=== PATIENT | female | born 1960 | race Caucasian/White ===

== ENCOUNTER 2019-12-08 04:14 | Inpatient (IN) | payer OTHER, SELFPAY ==
[~2019-12-08] VITALS: Ht 182.9 cm; Wt 60.9 kg
[2019-12-08 04:14] VITALS: BP_SYST 137
--- NOTE | 2019-12-08 05:35 | NUR ---
Patient to ER bed 5 to gown for evaluation. Side rails up.
--- NOTE | 2019-12-08 05:39 | NUR ---
XRAY AT BEDSIDE.
--- NOTE | 2019-12-08 05:40 | NUR ---
PT C/O OF CHEST PAIN 12/31, INCREASING SOB, LOSS OF APPETITE, NAUSEA, VOMITING, AND DIARRHEA SINCE WEDNESDAY. PT HAS HAD A HEADACHE SINCE WEDNESDAY. PT HAS NOT BEEN ABLE TO KEEP ANYTHING DOWN. PT VISITED HER PCP YESTERDAY AND HAD PRESCRIPTION FOR COVID SWAB AND XRAY. PT WAS GIVEN ZPAK YESTERDAY.
--- NOTE | 2019-12-08 06:20 | NUR ---
# 20 gauge angiocath placed to RAC. Use of asceptic technique. Opsite placed over site. Blood return noted. Blood,BLOOD CULTURES, LACTIC for lab drawn from site. Flushed with 10 cc of normal saline. No evidence of infiltration noted. Patient tolerated well.
--- NOTE | 2019-12-08 06:23 | NUR ---
ER Dr. HAGAN at bedside examining patient.
--- NOTE | 2019-12-08 06:25 | NUR ---
COVID SWAB COLLECTED AND SENT TO LAB.
--- NOTE | 2019-12-08 06:30 | NUR ---
Medication reconciliation completed with information provided by PATIENT. Any prior medication reconciliation on file was reviewed and corrected.
--- NOTE | 2019-12-08 06:30 | NUR ---
Patient's code status is FULL CODE paperwork completed and placed in chart.
--- NOTE | 2019-12-08 06:33 | NUR ---
PT USING BEDSIDE COMMODE TO URINATE.
[2019-12-08 06:37] LABS: BASOPHILS % (AUTO) 0.2 % (0.0-2.0); EOSINOPHILS % (AUTO) 0.2 % (0.0-4.0); HEMATOCRIT 36.7 % (36-48); HEMOGLOBIN 12.7 g/dL (12.0-16.0); LYMPHOCYTES # (AUTO) 1.1 K/uL (1.0-5.5); LYMPHOCYTES % (AUTO) 12.7 % (20.5-51.5); MEAN CORPUSCULAR HEMOGLOBIN 34 pg (27-31); MEAN CORPUSCULAR HGB CONC 35 % (32-36); MEAN CORPUSCULAR VOLUME 99 fL (79.0-98.0); MONOCYTES % (AUTO) 11.4 % (1.7-9.3); NEUTROPHILS # (AUTO) 6.3 K/uL (1.8-7.7); NEUTROPHILS % (AUTO) 75.5 % (40.0-70.0); PLATELET COUNT (AUTO) 237 K/uL (130-430); WHITE BLOOD COUNT (AUTO) 8.4 K/uL (4.8-10.8)
[2019-12-08 06:54] LABS: CALCIUM 8.5 mg/dL (8.4-11.0); CREATININE 0.7 mg/dL (0.55-1.30); POTASSIUM 3.4 mmol/L (3.5-5.1)
[2019-12-08 06:55] LABS: BILIRUBIN,URINE NEGATIVE (NEGATIVE); BLOOD, URINE 1+ (NEGATIVE); CLARITY/URINE CLEAR (CLEAR); COLOR,URINE YELLOW (YELLOW); GLUCOSE,URINE NEGATIVE (NEGATIVE); KETONES,URINE 1+ (NEGATIVE); LEUKOCYTE ESTERASE ,URINE NEGATIVE (NEGATIVE); NITRITE, URINE NEGATIVE (NEGATIVE); PROTEIN URINE NEGATIVE (NEGATIVE); UROBILINOGEN,URINE 0.2 (0.2-1.0)
[2019-12-08 06:58] LABS: ALBUMIN 3.4 g/dL (3.4-4.8); C-REACTIVE PROTEIN QUANT 3.2 mg/dL (0-0.5); TOTAL BILIRUBIN 0.7 mg/dL (0.0-1.0)
[2019-12-08 07:00] LABS: INR 1.1 (0.8-1.2); PROTHROMBIN TIME 11.1 SECS (9.5-12.5)
[2019-12-08 07:11] LABS: BACTERIA,URINE FEW /HPF (None Seen); MUCUS,URINE 1+ /LPF (None Seen); WBC,URINE 0-3 /HPF (0-3)
--- NOTE | 2019-12-08 07:12 | NUR ---
report given to JAVIER Molina for continuation of care.
--- NOTE | 2019-12-08 07:13 | NUR ---
Critical result relayed to Dr. Herrmann, Chloride 84
[2019-12-08 07:15] LABS: BARBITURATE, URINE NEGATIVE (NEG <=200); BENZODIAZEPINE, URINE NEGATIVE (NEG <=150); CANNABINOID, URINE NEGATIVE (NEG <=50); COCAINE, URINE NEGATIVE (NEG <=150); METHAMPHETAMINES SCREEN,URINE NEGATIVE (NEG <=500); OPIATE, URINE NEGATIVE (NEG <=100); PHENCYCLIDINE SCREEN,URINE NEGATIVE (NEG <=25); UR TRICYCLIC ANTIDEPRESSANTS NEGATIVE (NEG <=300); URINE AMPHETAMINE NEGATIVE (NEG <=500); URINE METHADONE NEGATIVE (NEG <=200); URINE OXYCODONE SCREEN NEGATIVE (NEG <=100); URINE PROPOXYPHENE SCREEN NEGATIVE (NEG <=300)
[2019-12-08] MEDS ORDERED: ENOXAPARIN SODIUM 60 MG/0.6 ML SYRINGE SUBCUT ONE (07:15)
[2019-12-08] MEDS ORDERED: ASPIRIN 325 MG TABLET PO ONE (07:15)
--- NOTE | 2019-12-08 08:16 | NUR ---
Admit orders received from Dr. Emery, awaiting bed placement. Requested hospital bed from [facility]
--- NOTE | 2019-12-08 08:16 | NUR ---
Belongings list completed
[2019-12-08] MEDS ORDERED: ASPIRIN 325 MG TABLET (ECOTRIN) PO ONE (10:08)
[2019-12-08] MEDS ORDERED: ENOXAPARIN SODIUM 80 MG/0.8 ML SYRINGE ONE (10:09)
--- NOTE | 2019-12-08 11:23 | NUR ---
Pt reports nausea, called Dr. Emery, v/o received for Zofran IV.
[2019-12-08] MEDS ORDERED: FUROSEMIDE 40 MG/4 ML VIAL IVP ONE (12:00)
[2019-12-08] MEDS: cefTRIAXone 1 GM in D5W 50 ML IV SCH (12:41)
[2019-12-08] MEDS: ONDANSETRON HCL 4 MG/2 ML VIAL IM PRN ×2 (12:41→19:32)
[2019-12-08] MEDS ORDERED: cefTRIAXone 1 GM VIAL ONE (12:42)
[2019-12-08] MEDS ORDERED: AZITHROMYCIN 500 MG/VIAL (ZITHROMAX) IV ONE (12:43)
[2019-12-08] MEDS: AZITHROMYCIN 500 MG in NS 250 ML IV SCH (14:25)
--- NOTE | 2019-12-08 19:11 | NUR ---
Care of patient endorsed to JAVIER Gunter. Currently resting in bed, no distress noted.
--- NOTE | 2019-12-08 19:25 | NUR ---
Patient states " can't eat dinner, nausea."
--- NOTE | 2019-12-08 19:31 | NUR ---
Given Zofran 4 mg IV as order from Dr. Emery prn med.
--- NOTE | 2019-12-08 19:32 | NUR ---
Provided ice chips as patient request.
--- NOTE | 2019-12-08 19:46 | NUR ---
Empty bedside commode and change new one.
--- NOTE | 2019-12-08 20:22 | NUR ---
Given crackers as request.
--- NOTE | 2019-12-08 22:20 | NUR ---
Patient resting quietly. No acute distress noted. Vital signs within normal range.
--- NOTE | 2019-12-09 00:37 | NUR ---
Patient is asleep on bed, vss. No breathing distress or SOB.
--- NOTE | 2019-12-09 03:46 | NUR ---
Patient is asleep. No acute distress noted. Vital signs within normal range.
--- NOTE | 2019-12-09 06:10 | NUR ---
Change a new bedside commode.
--- NOTE | 2019-12-09 07:25 | NUR ---
Report received from Lyric HERRERA. Pt is [id number]. Currently waiting for a tele PUI.
[2019-12-09] MEDS ORDERED: ONDANSETRON HCL 4 MG/2 ML VIAL IM PRN (09:30)
[2019-12-09] MEDS ORDERED: ACETAMINOPHEN 325 MG TABLET PO PRN (09:30)
[2019-12-09] MEDS ORDERED: ALBUTEROL MDI INHALATION 8 GM INH INH PRN (09:30)
[2019-12-09] MEDS ORDERED: ALBUTEROL SULFATE 0.083% 2.5 MG/3 ML VIAL.NEB INH PRN (09:45)
[2019-12-09] MEDS ORDERED: ASCORBIC ACID 500 MG TABLET PO ONE (10:00)
[2019-12-09] MEDS ORDERED: CHOLECALCIFEROL (VITAMIN D3) 2,000 UNIT TABLET PO ONE (10:00)
--- NOTE | 2019-12-09 10:15 | NUR ---
am meds given.
[2019-12-09] MEDS: DECADRON 4 MG TABLET PO SCH (10:54)
[2019-12-09] MEDS: cefTRIAXone 1 GM in D5W 50 ML IV SCH (11:00)
[2019-12-09] MEDS ORDERED: ENOXAPARIN SODIUM 80 MG/0.8 ML SYRINGE SUBCUT ONE (11:00)
--- NOTE | 2019-12-09 11:20 | NUR ---
Dr. Stratton at the bedside w/ the pt.
--- NOTE | 2019-12-09 11:40 | NUR ---
o2 titrated to 2l via NC
[2019-12-09] MEDS ORDERED: LISINOPRIL 5 MG TABLET PO ONE (12:00)
[2019-12-09] MEDS ORDERED: FUROSEMIDE 20 MG/2 ML VIAL IVP ONE (12:00)
[2019-12-09] MEDS ORDERED: POTASSIUM CHLORIDE 8 MEQ TABLET.SA PO ONE (12:00)
[2019-12-09 12:12] LABS: BASOPHILS % (AUTO) 0.4 % (0.0-2.0); EOSINOPHILS # (AUTO) 0.1 K/uL (0.0-0.4); EOSINOPHILS % (AUTO) 1.1 % (0.0-4.0); HEMATOCRIT 36.5 % (36-48); HEMOGLOBIN 12.6 g/dL (12.0-16.0); LYMPHOCYTES # (AUTO) 1.2 K/uL (1.0-5.5); LYMPHOCYTES % (AUTO) 18.6 % (20.5-51.5); MEAN CORPUSCULAR HEMOGLOBIN 34 pg (27-31); MEAN CORPUSCULAR HGB CONC 35 % (32-36); MEAN CORPUSCULAR VOLUME 99 fL (79.0-98.0); MONOCYTES # (AUTO) 1.1 K/uL (0.0-1.0); MONOCYTES % (AUTO) 16.4 % (1.7-9.3); NEUTROPHILS # (AUTO) 4.1 K/uL (1.8-7.7); NEUTROPHILS % (AUTO) 63.5 % (40.0-70.0); PLATELET COUNT (AUTO) 237 K/uL (130-430); RED BLOOD CELL COUNT(AUTO) 3.69 MIL/uL (4.2-6.2); WHITE BLOOD COUNT (AUTO) 6.5 K/uL (4.8-10.8)
[2019-12-09 12:23] LABS: CALCIUM 8.3 mg/dL (8.4-11.0); CREATININE 0.67 mg/dL (0.55-1.30); POTASSIUM 3.4 mmol/L (3.5-5.1)
--- NOTE | 2019-12-09 12:30 | NUR ---
pt is having lunch in bed.
[2019-12-09 12:32] LABS: TOTAL BILIRUBIN 0.4 mg/dL (0.0-1.0)
[2019-12-09] MEDS: AZITHROMYCIN 500 MG in NS 250 ML IV SCH (13:03)
--- NOTE | 2019-12-09 13:30 | NUR ---
Zithromax IVPB currently infusing per MD order.
--- NOTE | 2019-12-09 16:38 | NUR ---
pt is currenlty resting in bed. No signs of distress at the moment
--- NOTE | 2019-12-09 17:07 | NUR ---
Patient will be admitted to care of Dr. Rubalcava. Admitted to Tele PUI unit. Will go to room 123-b. Belongings list completed. Complete and up to date summary report printed. SBAR report to be given at bedside with opportunity for questions. IV is on the RAC 20g patent and infusing well
--- NOTE | 2019-12-09 17:34 | NUR ---
ADMISSION NOTE: Received patient from ER via mary, received report from JAVIER ROSADO. Patient admitted with diagnosis of PNA, RULE OUT COVID. Patient oriented to hospital routine, call light, toileting and safety-patient verbalized understanding.
--- NOTE | 2019-12-09 17:40 | NUR ---
INITIAL NOTE: RECEIVED PATIENT FROM ER. PATIENT IS AWAKE AND ALERT x4 LAYING DOWN IN BED. PATIENT DENIES ANY PAIN AT THE MOMENT. PATIENT IS TOLERATING OXYGEN ON 2 L NASAL CANNULA WITH NO SIGNS OF DISTRESS OR SHORTNESS OF BREATH NOTED. IV SITE IS PATENT WITH NO SIGNS OF INFILTRATION NOTED. PATIENT IN STABLE CONDITION. SAFETY, FALL, ASPIRATION, CONTACT AND DROPLET PRECAUTIONS ARE IN PLACE. BED LOCKED IN LOWEST POSITION WITH CALL LIGHT IN REACH. WILL CONTINUE TO MONITOR PATIENT FOR ANY CHANGES.
[2019-12-09 17:56] VITALS: BP_SYST 108
--- NOTE | 2019-12-09 19:06 | NUR ---
CLOSING NOTES: PATIENT IS AWAKE AND ALERT x4 LAYING DOWN IN BED. PATIENT DENIES ANY PAIN AT THE MOMENT. PATIENT IS TOLERATING OXYGEN ON 2 L NASAL CANNULA WITH NO SIGNS OF DISTRESS OR SHORTNESS OF BREATH NOTED. IV SITE IS PATENT WITH NO SIGNS OF INFILTRATION NOTED. PATIENT IN STABLE CONDITION. SAFETY, FALL, ASPIRATION, CONTACT AND DROPLET PRECAUTIONS REMAINED IN PLACE THROUGHOUT THE SHIFT. BED LOCKED IN LOWEST POSITION WITH CALL LIGHT IN REACH. WILL ENDORSE PATIENT CARE TO ONCOMING SALON LEADER NURSE.
--- NOTE | 2019-12-09 19:10 | NUR ---
PAGED DOCTOR FAUSTO FOR RESULTS OF COVID
--- NOTE | 2019-12-09 19:30 | NUR ---
PT IS FULLY AWAKE, ALERT AND ORIENTED X4. PT IS ON OXYGEN AT 2L/MIN PER NC AND O2 SATURATION IS 95%. NO C/O PAIN OR DISCOMFORT AND NO RESPIRATORY DISTRESS NOTED. SALINE LOCK IN RAC IS WITHOUT ANY SIGNS OF INFILTRATION. FALL, CONTACT ISOLATION AND SAFETY PRECAUTIONS ARE IN PLACE. CALL LIGHT IS WITH PT AND BED IS IN THE LOWEST AND LOCKED POSITIONS. Addendum: 12/09/19 at 2243 by Paula Teresa RN CORRECTION: PT IS ON DROPLET ISOLATION PRECAUTION.
[2019-12-09 20:00] VITALS: BP_SYST 113
--- NOTE | 2019-12-09 22:00 | NUR ---
COVID-19 SPECIMEN COLLECTED AND TAKEN TO THE LAB. PT DENIES SOB. FALL, DROPLET ISOLATION AND SAFETY PRECAUTIONS ARE IN PLACE.
[2019-12-09] MEDS: ENOXAPARIN SODIUM 80 MG/0.8 ML SYRINGE SUBCUT SCH (22:18)
[2019-12-09] MEDS: ASCORBIC ACID 500 MG TABLET PO SCH (22:18)
[2019-12-09] MEDS: FUROSEMIDE 20 MG/2 ML VIAL IVP SCH (22:19)
[2019-12-10] VITALS: BP_SYST 114
--- NOTE | 2019-12-10 | NUR ---
PT IS RESTING QUIETLY IN BED. NO C/O PAIN OR DISCOMFORT. FALL, DROPLET ISOLATION AND SAFETY PRECAUTIONS ARE IN PLACE.
--- NOTE | 2019-12-10 03:00 | NUR ---
PT IS SLEEPING WITHOUT ANY RESPIRATORY DISTRESS NOTED. OXYGEN IS ON AT 2L/MIN PER NC.
--- NOTE | 2019-12-10 05:00 | NUR ---
PT IS RESTING QUIETLY IN BED AND NO RESPIRATORY DISTRESS NOTED.
--- NOTE | 2019-12-10 06:40 | NUR ---
PT IS AWAKE AND RESTING COMFORTABLY IN BED. ALL PT'S NEEDS WERE ATTENDED TO. FALL, DROPLET ISOLATION AND SAFETY PRECAUTIONS ARE IN PLACE. WILL ENDORSE TO DAY SHIFT NURSE.
[2019-12-10 07:33] LABS: ALBUMIN 2.9 g/dL (3.4-4.8); CALCIUM 8.4 mg/dL (8.4-11.0); CREATININE 0.8 mg/dL (0.55-1.30); TOTAL BILIRUBIN 0.4 mg/dL (0.0-1.0)
[2019-12-10 07:38] LABS: BASOPHILS % (AUTO) 0.2 % (0.0-2.0); EOSINOPHILS % (AUTO) 0.1 % (0.0-4.0); HEMOGLOBIN 12.3 g/dL (12.0-16.0); LYMPHOCYTES # (AUTO) 1.1 K/uL (1.0-5.5); LYMPHOCYTES % (AUTO) 16.1 % (20.5-51.5); MEAN CORPUSCULAR HEMOGLOBIN 34 pg (27-31); MEAN CORPUSCULAR HGB CONC 34 % (32-36); MEAN CORPUSCULAR VOLUME 100 fL (79.0-98.0); MONOCYTES % (AUTO) 14.5 % (1.7-9.3); NEUTROPHILS # (AUTO) 4.9 K/uL (1.8-7.7); NEUTROPHILS % (AUTO) 69.1 % (40.0-70.0); PLATELET COUNT (AUTO) 250 K/uL (130-430); RED BLOOD CELL COUNT(AUTO) 3.61 MIL/uL (4.2-6.2); RED CELL DISTRIBUTION WIDTH 12.9 % (9.0-15.0); WHITE BLOOD COUNT (AUTO) 7.1 K/uL (4.8-10.8)
[2019-12-10 07:45] VITALS: BP_SYST 111
[2019-12-10] MEDS: ASCORBIC ACID 500 MG TABLET PO SCH ×2 (08:51→20:47)
[2019-12-10] MEDS: FUROSEMIDE 20 MG/2 ML VIAL IVP SCH ×2 (08:51→20:47)
[2019-12-10] MEDS: CHOLECALCIFEROL (VITAMIN D3) 2,000 UNIT TABLET PO SCH (08:51)
[2019-12-10] MEDS: LISINOPRIL 5 MG TABLET PO SCH (08:51)
[2019-12-10] MEDS: ENOXAPARIN SODIUM 80 MG/0.8 ML SYRINGE SUBCUT SCH ×2 (08:53→20:20)
[2019-12-10] MEDS ORDERED: POTASSIUM CHLORIDE 8 MEQ TABLET.SA PO SCH (09:00)
[2019-12-10] MEDS ORDERED: CARVEDILOL 3.125 MG TABLET (COREG) PO ONE (09:30)
[2019-12-10] MEDS ORDERED: POTASSIUM CHLORIDE 20 MEQ TAB.PRT.SR PO ONE (09:30)
[2019-12-10] MEDS: DECADRON 4 MG TABLET PO SCH ×2 (10:00→11:13)
[2019-12-10 11:25] VITALS: BP_SYST 115
[2019-12-10] MEDS: cefTRIAXone 1 GM in D5W 50 ML IV SCH (12:18)
[2019-12-10] MEDS ORDERED: METOLAZONE 2.5 MG TABLET PO ONE (12:30)
[2019-12-10] MEDS: AZITHROMYCIN 500 MG in NS 250 ML IV SCH (14:00)
--- NOTE | 2019-12-10 14:15 | NUR ---
Dietitian Recommendations *Recommend Cardiac diet Please see Nutrition Assessment for further details. LT, RD
--- NOTE | 2019-12-10 15:00 | NUR ---
Patient ambulate in the room with oxygen with steady gait, no SOB
[2019-12-10 15:37] VITALS: BP_SYST 101
--- NOTE | 2019-12-10 19:37 | NUR ---
PT ENDORSED TO NIGHT JAVIER COOK, PT HAS BEEN STABLE THE WHOLE SHIFT, NO C/O OF PAIN. GIVEN WARM COMPRESS FOR BACK SORENESS. 2DECHO DONE.
--- NOTE | 2019-12-10 19:44 | NUR ---
REPORT RECEIVED FROM DAY SHIFT NURSE. PT WAS RECEIVED LYING IN BED FULLY AWAKE, ALERT AND ORIENTED X4. PT IS ON OXYGEN AT 2L/MIN PER NC AND NO RESPIRATORY NOTED. NO C/O PAIN OR DISCOMFORT. SALINE LOCK IN RAC IS WITHOUT ANY SIGNS OF INFILTRATION. FALL, DROPLET ISOLATION AND SAFETY PRECAUTIONS ARE IN PLACE. CALL LIGHT IS WITH PT AND BED IS IN THE LOWEST AND LOCKED POSITIONS.
[2019-12-10 20:00] VITALS: BP_SYST 126
[2019-12-10] MEDS: POTASSIUM CHLORIDE 20 MEQ TAB.PRT.SR PO SCH (20:47)
[2019-12-10] MEDS ORDERED: CARVEDILOL 6.25 MG TABLET (COREG) PO SCH (21:00)
[2019-12-10] MEDS ORDERED: CARVEDILOL 3.125 MG TABLET (COREG) PO SCH (21:00)
--- NOTE | 2019-12-10 22:30 | NUR ---
PT IS RESTING QUIETLY IN BED. NO C/O PAIN OR DISCOMFORT. PT IS ON ROOM AIR AND NO RESPIRATORY DISTRESS NOTED.
[2019-12-11] VITALS: BP_SYST 128
--- NOTE | 2019-12-11 01:00 | NUR ---
PT IS SLEEPING COMFORTABLY IN BED. NO RESPIRATORY DISTRESS NOTED. FALL, DROPLET ISOLATION AND SAFETY PRECAUTIONS ARE IN PLACE.
--- NOTE | 2019-12-11 02:35 | NUR ---
Consultation Paged Reason for Consultation: Covid Follow Up Was consult called: Y Person who was notified: Mitali Consulting Physician: Dr. Son Ordering Physician: Dr. Emery
--- NOTE | 2019-12-11 03:00 | NUR ---
PT IS SLEEPING WITHOUT ANY RESPIRATORY DISTRESS NOTED.
[2019-12-11 08:01] LABS: BASOPHILS % (AUTO) 0.4 % (0.0-2.0); EOSINOPHILS % (AUTO) 0.5 % (0.0-4.0); HEMATOCRIT 40.7 % (36-48); HEMOGLOBIN 13.9 g/dL (12.0-16.0); LYMPHOCYTES % (AUTO) 22.7 % (20.5-51.5); MEAN CORPUSCULAR HEMOGLOBIN 35 pg (27-31); MEAN CORPUSCULAR HGB CONC 34 % (32-36); MEAN CORPUSCULAR VOLUME 101 fL (79.0-98.0); MONOCYTES # (AUTO) 0.9 K/uL (0.0-1.0); MONOCYTES % (AUTO) 9.8 % (1.7-9.3); NEUTROPHILS # (AUTO) 5.9 K/uL (1.8-7.7); NEUTROPHILS % (AUTO) 66.6 % (40.0-70.0); PLATELET COUNT (AUTO) 340 K/uL (130-430); RED BLOOD CELL COUNT(AUTO) 4.04 MIL/uL (4.2-6.2); RED CELL DISTRIBUTION WIDTH 13.1 % (9.0-15.0); WHITE BLOOD COUNT (AUTO) 8.9 K/uL (4.8-10.8)
[2019-12-11 08:04] LABS: ALBUMIN 3.6 g/dL (3.4-4.8); CALCIUM 9.2 mg/dL (8.4-11.0); CREATININE 0.98 mg/dL (0.55-1.30); POTASSIUM 3.3 mmol/L (3.5-5.1); TOTAL BILIRUBIN 0.4 mg/dL (0.0-1.0)
[2019-12-11 09:00] VITALS: BP_SYST 120
--- NOTE | 2019-12-11 09:00 | NUR ---
Notes- Transfer from [facility] room. pt is awake alert and ambulatory. complain of some sore on her back. pt just take tylenol. on room air. denies any chest pain or shortness of breath. Enc to call for help as needed. pt verbalize understanding.
[2019-12-11] MEDS: CHOLECALCIFEROL (VITAMIN D3) 2,000 UNIT TABLET PO SCH (09:10)
[2019-12-11] MEDS: POTASSIUM CHLORIDE 20 MEQ TAB.PRT.SR PO SCH (09:10)
[2019-12-11] MEDS: LISINOPRIL 5 MG TABLET PO SCH (09:11)
[2019-12-11] MEDS: ASCORBIC ACID 500 MG TABLET PO SCH (09:12)
[2019-12-11] MEDS: ENOXAPARIN SODIUM 80 MG/0.8 ML SYRINGE SUBCUT SCH (09:13)
[2019-12-11] MEDS ORDERED: FURO-149 PO (10:55)
[2019-12-11] MEDS ORDERED: POTA20TA83 PO (10:55)
[2019-12-11] MEDS ORDERED: CARV12.548 PO (10:55)
[2019-12-11] MEDS ORDERED: LISI-209 PO (10:56)
[2019-12-11] MEDS ORDERED: ASPI-1155 PO (10:56)
--- NOTE | 2019-12-11 11:00 | NUR ---
chf protocol- Pt stated that she will be the one to call for appointment to her doctor this week.
[2019-12-11 11:11] VITALS: BP_SYST 120
--- NOTE | 2019-12-11 12:22 | NUR ---
discharge notes D/C pt home with prescription. Denies any chest pain or discomfort. D/C instruction and prescription given and discussed with patient. pt verbalize understanding. Arm band IVL removed.
[2019-12-11] MEDS ORDERED: CARVEDILOL 12.5 MG TABLET (COREG) PO SCH (21:00)
[2019-12-12] MEDS ORDERED: FUROSEMIDE 40 MG/4 ML VIAL IVP SCH (09:00)
== END 2019-12-11 12:15 | disposition home or self-care (01) | DRG 280 ==
LOC: SED 04:14 → STU 08:12
PROVIDERS: ADMIT Internal Medicine Hospice and Palliative Medicine; ATTEND Internal Medicine Hospice and Palliative Medicine
DX: I50.23 Acute on chronic systolic (congestive) heart failure (principal); I21.4 Non-ST elevation (NSTEMI) myocardial infarction; J96.01 Acute respiratory failure with hypoxia; J18.9 Pneumonia, unspecified organism; I42.9 Cardiomyopathy, unspecified; I25.5 Ischemic cardiomyopathy; Z20.828 Contact with and (suspected) exposure to other viral communicable diseases; E87.6 Hypokalemia; F10.20 Alcohol dependence, uncomplicated; Y90.9 Presence of alcohol in blood, level not specified; I11.0 Hypertensive heart disease with heart failure; I25.10 Atherosclerotic heart disease of native coronary artery without angina pectoris
CPT/HCPCS: 36415; 36600; 71045; 80053; 80307; 81000-TC; 82550-TC; 82728; 82803-TC; 83605; 83615-TC; 83880; 84484; 85025; 85384-TC; 85610-TC; 85730-TC; 86140; 87040-TC; 93005; 93306; 94760; 96372; 96374; 96375; 99291; G0378; J0456; J0696; J1650; J1940; J2405; J7050; J7060; J8540; U0003-CS